=== PATIENT | female | born 1965 | race Two or more races ===

== ENCOUNTER 2019-09-16 13:35 | Inpatient (IN) | payer OTHER ==
[~2019-09-16] VITALS: Ht 157.5 cm; Wt 52.6 kg
[2019-10-03] MEDS ORDERED: PANTOPRAZOLE SO40 MG PO (14:09)
[2019-10-03] MEDS ORDERED: LEVOXYL25 MCG PO (14:09)
[2019-10-08] MEDS ORDERED: CLINDAMYCIN PHO30 M1 (15:45)
[2019-10-08] MEDS ORDERED: BENZOYL PEROXI (15:45)
[2019-10-13] MEDS ORDERED: HYOSCYAMINE0.125 M1 SL (14:08)
[2019-10-13] MEDS ORDERED: ULTRACET PO (14:09)
[2019-10-13] MEDS ORDERED: INTESTINEX680 M1 PO (14:09)
== END 2019-10-13 15:35 | disposition home or self-care (01) | DRG 330 ==
LOC: O/R 10-08 06:34 → SURH 10-08 06:34
PROVIDERS: ADMIT Colon & Rectal Surgery; ATTEND Colon & Rectal Surgery
PROC: 0DBN4ZZ Excision of Sigmoid Colon, Percutaneous Endoscopic Approach (ICD-10-PCS; 2019-10-08)
PROC: 0DJD8ZZ Inspection of Lower Intestinal Tract, Via Natural or Artificial Opening Endoscopic (ICD-10-PCS; 2019-10-08)
PROC: 0DTP4ZZ Resection of Rectum, Percutaneous Endoscopic Approach (ICD-10-PCS; principal; 2019-10-08 11:00)
DX: K57.30 Diverticulosis of large intestine without perforation or abscess without bleeding (principal); D62 Acute posthemorrhagic anemia; E03.9 Hypothyroidism, unspecified

== ENCOUNTER 2019-12-04 19:37 | Inpatient (IN) | payer OTHER ==
[~2019-12-04] VITALS: Ht 157.5 cm; Wt 49.9 kg
[~2019-12-04 19:37] MED LIST: BENZOYL PEROXI; CLINDAMYCIN PHO30 M1; HYOSCYAMINE0.125 M1 SL; INTESTINEX680 M1 PO; LEVOXYL25 MCG PO; PANTOPRAZOLE SO40 MG PO; ULTRACET PO
[2019-12-04] MEDS ORDERED: CIPRO500 MG (19:45)
[2019-12-04] MEDS ORDERED: FLAGYL500MG (19:45)
--- NOTE | 2019-12-04 19:45 | NUR ---
SE RECIBE PTE ALERTA Y ORIENTADA X3,REFIERE TENER EMESIS ,DOLOR ABDOMINAL,LA OPERO EL DE DIVERTICULOS .
--- NOTE | 2019-12-04 20:38 | NUR ---
EVALUA PTE. SE ORIENTA A PTE SOBRE TX MEDICO. PTE REFIERE COMPRENDER. SE COLECTAN MUESTRAS DE LABORATORIO BAJO MEDIDAS ASEPTICAS. SE ADMINISTRAN MEDICAMENTOS DANDRE ORDEN MEDICA. SE NOTIFICA A MS.MATOS THORPE. SE MANTIENE BAJO OBSERVACION.
--- NOTE | 2019-12-05 07:15 | NUR ---
SE RECIBE PTE ALERTA Y CONCIENTE POR 3 EN CAMA CON BARANDAS ELEVADA Y TIMBRE ACCESIBLE SE OBSERVA VENOPUNCION PATNETE Y CARLOS DE EDEMA PTE SE ORIENTA QUE TIENE DELIA MUESTRAS DE FECAL PENDIENTE PTE EN ESEPRA DEL TOUS.
[2020-01-06] MEDS ORDERED: PROTONIX IV40 MG PO (18:45)
[2020-01-06] MEDS ORDERED: CARAFATE1 GM PO (18:45)
[2020-01-07] MEDS ORDERED: SYNTHROID (21:59)
== END 2020-01-06 19:55 | disposition home or self-care (01) | DRG 329 ==
LOC: ER 19:37 → SEC-K 12-05 16:45 → SURH 12-05 16:45
PROVIDERS: ADMIT Colon & Rectal Surgery; ATTEND Colon & Rectal Surgery
PROC: 0DBM8ZX Excision of Descending Colon, Via Natural or Artificial Opening Endoscopic, Diagnostic (ICD-10-PCS; 2019-12-10)
PROC: 02HV33Z Insertion of Infusion Device into Superior Vena Cava, Percutaneous Approach (ICD-10-PCS; 2019-12-13)
PROC: 3E0336Z Introduction of Nutritional Substance into Peripheral Vein, Percutaneous Approach (ICD-10-PCS; 2019-12-13)
PROC: 0DJD8ZZ Inspection of Lower Intestinal Tract, Via Natural or Artificial Opening Endoscopic (ICD-10-PCS; 2019-12-17)
PROC: 0DTN4ZZ Resection of Sigmoid Colon, Percutaneous Endoscopic Approach (ICD-10-PCS; principal; 2019-12-17 07:00)
PROC: 0DH67UZ Insertion of Feeding Device into Stomach, Via Natural or Artificial Opening (ICD-10-PCS; 2019-12-20)
PROC: 3E0G76Z Introduction of Nutritional Substance into Upper GI, Via Natural or Artificial Opening (ICD-10-PCS; 2019-12-20)
PROC: BW21ZZZ Computerized Tomography (CT Scan) of Abdomen and Pelvis (ICD-10-PCS; 2019-12-22)
PROC: 0DT80ZZ Resection of Small Intestine, Open Approach (ICD-10-PCS; 2019-12-24)
PROC: 30233N1 Transfusion of Nonautologous Red Blood Cells into Peripheral Vein, Percutaneous Approach (ICD-10-PCS; 2019-12-25)
PROC: 8E0ZXY6 Isolation (ICD-10-PCS; 2019-12-25)
PROC: 0DJD8ZZ Inspection of Lower Intestinal Tract, Via Natural or Artificial Opening Endoscopic (ICD-10-PCS; 2020-01-03)
PROC: 0DJ08ZZ Inspection of Upper Intestinal Tract, Via Natural or Artificial Opening Endoscopic (ICD-10-PCS; 2020-01-03)
DX: D12.8 Benign neoplasm of rectum (principal); K65.1 Peritoneal abscess; K65.0 Generalized (acute) peritonitis; K57.33 Diverticulitis of large intestine without perforation or abscess with bleeding; K55.8 Other vascular disorders of intestine; K51.814 Other ulcerative colitis with abscess; N39.0 Urinary tract infection, site not specified; N17.8 Other acute kidney failure; K62.5 Hemorrhage of anus and rectum; K56.0 Paralytic ileus; D50.0 Iron deficiency anemia secondary to blood loss (chronic); B96.29 Other Escherichia coli [E. coli] as the cause of diseases classified elsewhere; B95.2 Enterococcus as the cause of diseases classified elsewhere; Z88.6 Allergy status to analgesic agent; K64.1 Second degree hemorrhoids; K64.2 Third degree hemorrhoids; K44.9 Diaphragmatic hernia without obstruction or gangrene

== ENCOUNTER 2020-01-07 21:30 | Inpatient (IN) | payer OTHER ==
[~2020-01-07] VITALS: Ht 157.5 cm; Wt 49.0 kg
[~2020-01-07 21:30] MED LIST changes: +CARAFATE1 GM PO; +CIPRO500 MG; +FLAGYL500MG; +PROTONIX IV40 MG PO
[2020-01-07] MEDS ORDERED: SYNTHROID (21:59)
[2020-01-27] MEDS ORDERED: LEVO-T25 MCG PO (10:19)
[2020-02-21] MEDS ORDERED: VASOTEC20 MG PO (12:30)
[2020-02-21] MEDS ORDERED: MAXIMUM D3325 MCG PO (12:30)
[2020-02-21] MEDS ORDERED: AMLODIPINE BESYL5 MG PO (12:30)
[2020-02-21] MEDS ORDERED: SIMETHICONE125 M1 PO (12:30)
[2020-02-21] MEDS ORDERED: MELATONIN5 M2 PO (12:30)
[2020-02-21] MEDS ORDERED: CARVEDILOL25 MG PO (12:30)
[2020-02-21] MEDS ORDERED: PROTONIX40 MG PO (12:30)
[2020-02-21] MEDS ORDERED: ZINC SULFATE220 M2 PO (12:30)
[2020-02-21] MEDS ORDERED: SPIRONOLACTONE25 MG PO (12:30)
[2020-02-21] MEDS ORDERED: VITAMIN C500 M1 PO (12:30)
[2020-02-21] MEDS ORDERED: HYDRALAZINE HCL50 MG PO (12:30)
[2020-02-21] MEDS ORDERED: LEVOTHYROXINE50 MCG PO (12:30)
== END 2020-02-21 14:33 | disposition home or self-care (01) | DRG 177 ==
LOC: ER 21:30 → SEC-K 01-08 10:02 → MEDJ 01-10 08:41 → MEDI 01-10 08:41
PROVIDERS: ADMIT Internal Medicine; ATTEND Internal Medicine
PROC: BB24ZZZ Computerized Tomography (CT Scan) of Bilateral Lungs (ICD-10-PCS; 2020-01-07)
PROC: 4A033R1 Measurement of Arterial Saturation, Peripheral, Percutaneous Approach (ICD-10-PCS; 2020-01-07)
PROC: 8E0ZXY6 Isolation (ICD-10-PCS; principal; 2020-01-08)
PROC: B246ZZZ Ultrasonography of Right and Left Heart (ICD-10-PCS; 2020-01-08)
PROC: 4A12X4Z Monitoring of Cardiac Electrical Activity, External Approach (ICD-10-PCS; 2020-01-10)
PROC: 30233P1 Transfusion of Nonautologous Frozen Red Cells into Peripheral Vein, Percutaneous Approach (ICD-10-PCS; 2020-01-13)
PROC: 02HV33Z Insertion of Infusion Device into Superior Vena Cava, Percutaneous Approach (ICD-10-PCS; 2020-01-14)
PROC: BW21ZZZ Computerized Tomography (CT Scan) of Abdomen and Pelvis (ICD-10-PCS; 2020-01-19)
PROC: 0W9H30Z Drainage of Retroperitoneum with Drainage Device, Percutaneous Approach (ICD-10-PCS; 2020-01-27)
PROC: 09C47ZZ Extirpation of Matter from Left External Auditory Canal, Via Natural or Artificial Opening (ICD-10-PCS; 2020-01-30)
PROC: 09C37ZZ Extirpation of Matter from Right External Auditory Canal, Via Natural or Artificial Opening (ICD-10-PCS; 2020-01-30)
PROC: BW21ZZZ Computerized Tomography (CT Scan) of Abdomen and Pelvis (ICD-10-PCS; 2020-02-04)
PROC: 0DB98ZX Excision of Duodenum, Via Natural or Artificial Opening Endoscopic, Diagnostic (ICD-10-PCS; 2020-02-07)
PROC: BW21ZZZ Computerized Tomography (CT Scan) of Abdomen and Pelvis (ICD-10-PCS; 2020-02-16)
PROC: B246ZZZ Ultrasonography of Right and Left Heart (ICD-10-PCS; 2020-02-19)
DX: U07.1 COVID-19 (principal); J96.01 Acute respiratory failure with hypoxia; J12.89 Other viral pneumonia; J90 Pleural effusion, not elsewhere classified; T81.49XA Infection following a procedure, other surgical site, initial encounter; T81.43XA Infection following a procedure, organ and space surgical site, initial encounter; K92.2 Gastrointestinal hemorrhage, unspecified; N17.8 Other acute kidney failure; K52.89 Other specified noninfective gastroenteritis and colitis; J98.2 Interstitial emphysema; I50.9 Heart failure, unspecified; B96.5 Pseudomonas (aeruginosa) (mallei) (pseudomallei) as the cause of diseases classified elsewhere; B95.2 Enterococcus as the cause of diseases classified elsewhere; B96.29 Other Escherichia coli [E. coli] as the cause of diseases classified elsewhere; D64.9 Anemia, unspecified; R19.8 Other specified symptoms and signs involving the digestive system and abdomen; E03.8 Other specified hypothyroidism; H61.23 Impacted cerumen, bilateral; Z20.828 Contact with and (suspected) exposure to other viral communicable diseases

== ENCOUNTER → 2020-03-30 | Outpatient (CLI) | payer OTHER ==
[~2020-03-30] MED LIST changes: +AMLODIPINE BESYL5 MG PO; +CARVEDILOL25 MG PO; +HYDRALAZINE HCL50 MG PO; +LEVO-T25 MCG PO; +LEVOTHYROXINE50 MCG PO; +MAXIMUM D3325 MCG PO; +MELATONIN5 M2 PO; +PROTONIX40 MG PO; +SIMETHICONE125 M1 PO; +SPIRONOLACTONE25 MG PO; +SYNTHROID; +VASOTEC20 MG PO; +VITAMIN C500 M1 PO; +ZINC SULFATE220 M2 PO
== END | disposition home or self-care (01) ==
LOC: OFIC 805 11:15
PROVIDERS: ATTEND Otolaryngology
DX: H90.3 Sensorineural hearing loss, bilateral (principal); H61.23 Impacted cerumen, bilateral; R42 Dizziness and giddiness

== ENCOUNTER → 2020-05-07 | Outpatient (CLI) | payer OTHER | END | disposition home or self-care (01) | LOC: OFIC 805 12:00 | PROVIDERS: ATTEND Otolaryngology | DX: R42 Dizziness and giddiness (principal); H91.8X1 Other specified hearing loss, right ear ==

== ENCOUNTER 2020-10-02 09:00 | Day surgery (SDC) | payer OTHER | END 2020-10-02 15:40 | disposition home or self-care (01) | LOC: AMB-ENDOS 09:00 | PROVIDERS: ATTEND Colon & Rectal Surgery | DX: K62.89 Other specified diseases of anus and rectum (principal); K64.0 First degree hemorrhoids; Z20.822 Contact with and (suspected) exposure to COVID-19 ==